=== PATIENT | female | born 1945 | race Hispanic/Latino ===

== ENCOUNTER → 2018-03-02 | Outpatient (CLI) | payer OTHER ==
[~2018-03-02] MED LIST: FURO20TA4 PO
== END | disposition home or self-care (01) ==
LOC: OIH 12:48
PROVIDERS: ATTEND Internal Medicine Cardiovascular Disease
DX: G31.9 Degenerative disease of nervous system, unspecified (principal)
CPT/HCPCS: 70450

== ENCOUNTER → 2018-03-11 | Outpatient (CLI) | payer OTHER | END | disposition home or self-care (01) | LOC: SHCH 15:33 | PROVIDERS: ATTEND Internal Medicine Cardiovascular Disease | DX: I20.9 Angina pectoris, unspecified (principal) | CPT/HCPCS: 93306 ==

== ENCOUNTER → 2018-03-17 | Outpatient (CLI) | payer OTHER ==
[~2018-03-17] VITALS: Ht 152.4 cm; Wt 99.3 kg
[~2018-03-17] MED LIST changes: +REGADENOSON 0.4 MG/5 ML PF SYG IVP SCH
== END | disposition home or self-care (01) ==
LOC: SHCH 09:23
PROVIDERS: ATTEND Internal Medicine Cardiovascular Disease
DX: I20.9 Angina pectoris, unspecified (principal)
CPT/HCPCS: 78452; 93017; 96374; A9500 ×2; J2785 ×2

== ENCOUNTER → 2018-03-30 | Outpatient (CLI) | payer OTHER ==
[~2018-03-30] MED LIST changes: -REGADENOSON 0.4 MG/5 ML PF SYG IVP SCH
== END | disposition home or self-care (01) ==
LOC: SHCH 09:56
PROVIDERS: ATTEND Internal Medicine Cardiovascular Disease
DX: I65.23 Occlusion and stenosis of bilateral carotid arteries (principal)
CPT/HCPCS: 93880

== ENCOUNTER → 2020-01-31 | Outpatient (CLI) | payer OTHER ==
[~2020-01-31] MED LIST changes: +CEFU500T67 PO; +LETR2.5T7 PO; +METO100T14 PO; +OSEL75 PO
== END | disposition home or self-care (01) ==
LOC: SHCH 14:15
PROVIDERS: ATTEND Internal Medicine Cardiovascular Disease
DX: I73.9 Peripheral vascular disease, unspecified (principal)
CPT/HCPCS: 93925

== ENCOUNTER → 2020-10-23 | Outpatient (CLI) | payer OTHER | END | disposition home or self-care (01) | LOC: OIH 12:49 | PROVIDERS: ATTEND Internal Medicine Cardiovascular Disease | DX: Z13.6 Encounter for screening for cardiovascular disorders (principal) | CPT/HCPCS: 75571 ==

== ENCOUNTER → 2020-10-23 | Outpatient (CLI) | payer OTHER | END | disposition home or self-care (01) | LOC: SHCH 12:50 | PROVIDERS: ATTEND Internal Medicine Cardiovascular Disease | DX: I10 Essential (primary) hypertension (principal) | CPT/HCPCS: 93975 ==

== ENCOUNTER → 2021-05-23 | Outpatient (CLI) | payer MEDICARE ==
[~2021-05-23] MED LIST changes: +AEC81 PO; +BIMA12.5OS OD; +CALC-1009 PO; +FLUO10CA21 PO; +METO-391 PO; +NIFE30TA5 PO; +PANT20TA18 PO; +ZOLE5INF IV; +[UNRECOGNIZED DRUG - OTHER] OU
== END | disposition home or self-care (01) ==
LOC: RAH 09:02
PROVIDERS: ATTEND Internal Medicine Gastroenterology
DX: K76.0 Fatty (change of) liver, not elsewhere classified (principal)
CPT/HCPCS: 76700

== ENCOUNTER 2021-05-27 08:09 | Inpatient (IN) | payer MEDICARE ==
[~2021-05-27] VITALS: Ht 149.9 cm; Wt 96.2 kg
[2021-05-27] VITALS (14 sets, daily range): BP systolic 110–150; BP diastolic 46–65
[~2021-05-27 08:09] MED LIST changes: +0.9%NACL 1000ML 1,000 ML IV ONE; -METO100T14 PO
[2021-05-27] MEDS ORDERED: PROPOFOL 10 MG/ML 20ML VIAL IV ONE ×2 (10:35)
[2021-05-27] MEDS ORDERED: ALBUTEROL 0.083% 2.5 MG/3 ML INH IH ONE (12:06)
[2021-05-27 16:26] LABS: BASOPHILS % (AUTO) 0.3 % (0.0-5.0); EOSINOPHILS % (AUTO) 2.2 % (0.0-8.0); HEMATOCRIT 37.9 % (36-48); LYMPHOCYTES % (AUTO) 6.2 % (21.0-51.0); MEAN CORPUSCULAR HEMOGLOBIN 31.9 pg (27.0-33.0); MEAN CORPUSCULAR HGB CONC 33.5 g/dL (32.0-36.0); MEAN CORPUSCULAR VOLUME 95.2 fL (79-99); MONOCYTES % (AUTO) 4.8 % (3.0-13.0); NEUTROPHILS % (AUTO) 86.2 % (40.0-77.0); PLATELET COUNT (AUTO) 222 K/uL (130-400); RED BLOOD CELL COUNT(AUTO) 3.98 MIL/uL (4.00-5.50); RED CELL DISTRIBUTION WIDTH 13.6 % (11.0-15.5); WHITE BLOOD COUNT (AUTO) 10.6 K/uL (4.8-10.8)
[2021-05-27] MEDS ORDERED: IPRATROPIUM/ALBUTEROL SULFATE 3 ML SOLUTION IH PRN (16:30)
[2021-05-27] MEDS ORDERED: LACTULOSE 20 GM/30 ML UDCUP PO PRN (16:30)
[2021-05-27] MEDS ORDERED: ACETAMINOPHEN 325 MG TAB PO PRN ×2 (16:30)
[2021-05-27 16:40] LABS: INR 1.05 (0.85-1.15); PROTHROMBIN TIME 11.4 SEC (9.6-11.6)
[2021-05-27 16:44] LABS: CREATININE 0.7 mg/dL (0.5-1.5); POTASSIUM 4.5 mmol/L (3.5-5.1)
[2021-05-27 16:48] LABS: ALBUMIN 3.2 g/dL (3.5-5.0); BILIRUBIN,TOTAL 0.6 mg/dL (0.2-1.0); TOTAL PROTEIN, SERUM 6.8 g/dL (6.0-8.3)
[2021-05-27] MEDS ORDERED: ZOLEDRONIC ACID IJ PRN (17:00)
[2021-05-27] MEDS ORDERED: MANNITOL IJ PRN (17:00)
[2021-05-27] MEDS ORDERED: WATER IJ PRN (17:00)
[2021-05-27] MEDS ORDERED: IOHEXOL-350 75 ML VIAL IV ONE (20:43)
[2021-05-27] MEDS: ZOSYN 3.375GM+NS 50ML 50 ML IV SCH (20:49)
[2021-05-27] MEDS: [UNRECOGNIZED DRUG - OTHER] OU SCH (21:00)
[2021-05-28] VITALS: BP 136/53
[2021-05-28] MEDS: ZOSYN 3.375GM+NS 50ML 50 ML IV SCH ×3 (04:46→21:36)
[2021-05-28] MEDS: ONDANSETRON 4MG INJ IV PRN (05:30)
[2021-05-28 06:23] VITALS: BP 140/50
[2021-05-28 08:00] VITALS: BP 130/50
[2021-05-28] MEDS: [UNRECOGNIZED DRUG - OTHER] OU SCH ×2 (09:00→21:00)
[2021-05-28] MEDS: BIMATOPROST OD SCH (09:00)
[2021-05-28] MEDS: NIFEDIPINE ER 30 MG TAB PO SCH (09:06)
[2021-05-28] MEDS: METOPROLOL SUCCINATE 50 MG TAB.SR.24H PO SCH (09:06)
[2021-05-28] MEDS: FLUOXETINE HCL 10 MG CAPSULE PO SCH (09:06)
[2021-05-28] MEDS: PANTOPRAZOLE 40 MG TAB DR PO SCH (09:06)
[2021-05-28] MEDS: ASPIRIN 81 MG EC TAB PO SCH (09:06)
[2021-05-28 09:45] LABS: BASOPHILS % (AUTO) 0.2 % (0.0-5.0); EOSINOPHILS % (AUTO) 0.1 % (0.0-8.0); HEMATOCRIT 33.2 % (36-48); MEAN CORPUSCULAR HEMOGLOBIN 31.8 pg (27.0-33.0); MEAN CORPUSCULAR HGB CONC 33.4 g/dL (32.0-36.0); MEAN CORPUSCULAR VOLUME 95.1 fL (79-99); MONOCYTES % (AUTO) 5.9 % (3.0-13.0); NEUTROPHILS % (AUTO) 82.3 % (40.0-77.0); PLATELET COUNT (AUTO) 192 K/uL (130-400); RED BLOOD CELL COUNT(AUTO) 3.49 MIL/uL (4.00-5.50); RED CELL DISTRIBUTION WIDTH 13.9 % (11.0-15.5); WHITE BLOOD COUNT (AUTO) 19.2 K/uL (4.8-10.8)
[2021-05-28 10:00] LABS: ALBUMIN 2.6 g/dL (3.5-5.0); BILIRUBIN,DIRECT 0.2 mg/dL (0.0-0.3); BILIRUBIN,TOTAL 0.8 mg/dL (0.2-1.0); CREATININE 0.7 mg/dL (0.5-1.5); POTASSIUM 3.6 mmol/L (3.5-5.1); TOTAL PROTEIN, SERUM 6.1 g/dL (6.0-8.3)
[2021-05-28 12:00] VITALS: BP 130/51
[2021-05-28] MEDS ORDERED: KCL 20 MEQ ERTAB PO ONE (12:03)
[2021-05-28 16:00] VITALS: BP 136/46
[2021-05-28] MEDS ORDERED: COMPOUND IV REFRIGERATED 1 EACH IVSOLN MISC PRN (17:00)
[2021-05-28] MEDS ORDERED: VANCOMYCIN PROTOCOL PER PHARMACY IV SCH (17:00)
[2021-05-28] MEDS: VANCOMYCIN 1.25GM/NS 250ML IVPB SCH ×2 (18:05)
[2021-05-28 20:00] VITALS: BP 143/51
[2021-05-29] VITALS: BP 160/52
[2021-05-29 04:00] VITALS: BP 140/48
[2021-05-29 05:24] LABS: BASOPHILS % (AUTO) 0.3 % (0.0-5.0); EOSINOPHILS % (AUTO) 0.6 % (0.0-8.0); HEMATOCRIT 31.9 % (36-48); LYMPHOCYTES % (AUTO) 11.7 % (21.0-51.0); MEAN CORPUSCULAR HEMOGLOBIN 31.3 pg (27.0-33.0); MEAN CORPUSCULAR HGB CONC 32.9 g/dL (32.0-36.0); MEAN CORPUSCULAR VOLUME 95.2 fL (79-99); MONOCYTES % (AUTO) 5.7 % (3.0-13.0); NEUTROPHILS % (AUTO) 81.3 % (40.0-77.0); PLATELET COUNT (AUTO) 178 K/uL (130-400); RED BLOOD CELL COUNT(AUTO) 3.35 MIL/uL (4.00-5.50); RED CELL DISTRIBUTION WIDTH 13.7 % (11.0-15.5); WHITE BLOOD COUNT (AUTO) 15.7 K/uL (4.8-10.8)
[2021-05-29] MEDS: ZOSYN 3.375GM+NS 50ML 50 ML IV SCH ×3 (05:27→21:55)
[2021-05-29 05:46] LABS: ALBUMIN 2.6 g/dL (3.5-5.0); BILIRUBIN,TOTAL 0.6 mg/dL (0.2-1.0); CREATININE 0.7 mg/dL (0.5-1.5); POTASSIUM 3.5 mmol/L (3.5-5.1); TOTAL PROTEIN, SERUM 6.3 g/dL (6.0-8.3)
[2021-05-29 08:00] VITALS: BP 161/55
[2021-05-29] MEDS: [UNRECOGNIZED DRUG - OTHER] OU SCH ×2 (09:00→21:00)
[2021-05-29] MEDS: BIMATOPROST OD SCH (09:00)
[2021-05-29] MEDS: VANCOMYCIN 1.25GM/NS 250ML IVPB SCH ×2 (10:18)
[2021-05-29] MEDS: FLUOXETINE HCL 10 MG CAPSULE PO SCH (10:19)
[2021-05-29] MEDS: NIFEDIPINE ER 30 MG TAB PO SCH (10:19)
[2021-05-29] MEDS: ASPIRIN 81 MG EC TAB PO SCH (10:19)
[2021-05-29] MEDS: PANTOPRAZOLE 40 MG TAB DR PO SCH (10:19)
[2021-05-29] MEDS: ENOXAPARIN SODIUM 40 MG/0.4 ML SYRINGE SQ SCH (10:19)
[2021-05-29] MEDS: METOPROLOL SUCCINATE 50 MG TAB.SR.24H PO SCH (10:19)
[2021-05-29 11:58] VITALS: BP 149/59
[2021-05-29 16:00] VITALS: BP 156/54
[2021-05-29 20:00] VITALS: BP 147/46
[2021-05-30] VITALS: BP 145/57
[2021-05-30] MEDS: ONDANSETRON 4MG INJ IV PRN ×2 (02:12→20:56)
[2021-05-30 04:00] VITALS: BP 157/65
[2021-05-30 05:00] LABS: HEMATOCRIT 33.1 % (36-48); MEAN CORPUSCULAR HEMOGLOBIN 31.4 pg (27.0-33.0); MEAN CORPUSCULAR HGB CONC 32.6 g/dL (32.0-36.0); MEAN CORPUSCULAR VOLUME 96.2 fL (79-99); RED BLOOD CELL COUNT(AUTO) 3.44 MIL/uL (4.00-5.50); RED CELL DISTRIBUTION WIDTH 13.4 % (11.0-15.5); WHITE BLOOD COUNT (AUTO) 10.4 K/uL (4.8-10.8)
[2021-05-30 05:20] LABS: CREATININE 0.6 mg/dL (0.5-1.5); POTASSIUM 3.5 mmol/L (3.5-5.1)
[2021-05-30] MEDS: ZOSYN 3.375GM+NS 50ML 50 ML IV SCH ×3 (05:35→20:56)
[2021-05-30 07:15] VITALS: BP 139/54
[2021-05-30] MEDS: [UNRECOGNIZED DRUG - OTHER] OU SCH ×2 (09:00→21:00)
[2021-05-30] MEDS: BIMATOPROST OD SCH (09:00)
[2021-05-30] MEDS: ASPIRIN 81 MG EC TAB PO SCH (09:55)
[2021-05-30] MEDS: NIFEDIPINE ER 30 MG TAB PO SCH (09:55)
[2021-05-30] MEDS: FLUOXETINE HCL 10 MG CAPSULE PO SCH (09:56)
[2021-05-30] MEDS: METOPROLOL SUCCINATE 50 MG TAB.SR.24H PO SCH (09:56)
[2021-05-30] MEDS: PANTOPRAZOLE 40 MG TAB DR PO SCH (09:56)
[2021-05-30] MEDS: ENOXAPARIN SODIUM 40 MG/0.4 ML SYRINGE SQ SCH (09:57)
[2021-05-30 11:03] VITALS: BP 148/66
[2021-05-30 15:28] VITALS: BP 167/75
[2021-05-30] MEDS ORDERED: GUAIFENESIN-DM 200/20 MG 10 ML PO PRN (16:30)
[2021-05-30 20:00] VITALS: BP 147/52
[2021-05-30] MEDS ORDERED: 0.9%NACL 50ML 50 ML IV ONE (20:53)
[2021-05-31] VITALS: BP 123/50
[2021-05-31 04:00] VITALS: BP 137/52
[2021-05-31] MEDS ORDERED: 0.9%NACL 50ML 50 ML IV ONE ×2 (05:29→21:56)
[2021-05-31] MEDS: ZOSYN 3.375GM+NS 50ML 50 ML IV SCH ×2 (05:32→14:25)
[2021-05-31 05:36] LABS: BASOPHILS % (AUTO) 0.5 % (0.0-5.0); EOSINOPHILS % (AUTO) 2.3 % (0.0-8.0); HEMATOCRIT 33.8 % (36-48); LYMPHOCYTES % (AUTO) 20.9 % (21.0-51.0); MEAN CORPUSCULAR HEMOGLOBIN 31.8 pg (27.0-33.0); MEAN CORPUSCULAR HGB CONC 33.1 g/dL (32.0-36.0); MONOCYTES % (AUTO) 7.7 % (3.0-13.0); NEUTROPHILS % (AUTO) 68.1 % (40.0-77.0); PLATELET COUNT (AUTO) 228 K/uL (130-400); RED BLOOD CELL COUNT(AUTO) 3.52 MIL/uL (4.00-5.50); RED CELL DISTRIBUTION WIDTH 13.4 % (11.0-15.5); WHITE BLOOD COUNT (AUTO) 8.5 K/uL (4.8-10.8)
[2021-05-31 05:44] LABS: CREATININE 0.7 mg/dL (0.5-1.5); MAGNESIUM 1.8 mg/dL (1.80-2.40); POTASSIUM 4.3 mmol/L (3.5-5.1)
[2021-05-31 08:00] VITALS: BP 165/85
[2021-05-31] MEDS: METOPROLOL SUCCINATE 50 MG TAB.SR.24H PO SCH (08:11)
[2021-05-31] MEDS: ASPIRIN 81 MG EC TAB PO SCH (08:11)
[2021-05-31] MEDS: FLUOXETINE HCL 10 MG CAPSULE PO SCH (08:11)
[2021-05-31] MEDS: NIFEDIPINE ER 30 MG TAB PO SCH (08:11)
[2021-05-31] MEDS: PANTOPRAZOLE 40 MG TAB DR PO SCH (08:11)
[2021-05-31] MEDS: ENOXAPARIN SODIUM 40 MG/0.4 ML SYRINGE SQ SCH (08:12)
[2021-05-31] MEDS: [UNRECOGNIZED DRUG - OTHER] OU SCH ×2 (08:14→21:00)
[2021-05-31] MEDS: BIMATOPROST OD SCH (08:14)
[2021-05-31] MEDS ORDERED: VANCOMYCIN PROTOCOL PER PHARMACY IV SCH (10:00)
[2021-05-31] MEDS ORDERED: COMPOUND IV REFRIGERATED 1 EACH IVSOLN MISC PRN (10:00)
[2021-05-31 12:00] VITALS: BP 150/65
[2021-05-31] MEDS: VANCOMYCIN 1.25GM/NS 250ML IVPB SCH ×2 (12:06)
[2021-05-31 16:00] VITALS: BP 146/72
[2021-05-31 20:00] VITALS: BP 144/67
[2021-06-01] VITALS: BP 159/71
[2021-06-01] MEDS: ZOSYN 3.375GM+NS 50ML 50 ML IV SCH ×3 (00:43→13:07)
[2021-06-01 04:00] VITALS: BP 146/67
[2021-06-01] MEDS ORDERED: 0.9%NACL 50ML 50 ML IV ONE (04:39)
[2021-06-01 08:00] VITALS: BP 117/67
[2021-06-01] MEDS: [UNRECOGNIZED DRUG - OTHER] OU SCH (09:00)
[2021-06-01] MEDS: BIMATOPROST OD SCH (09:00)
[2021-06-01] MEDS: ASPIRIN 81 MG EC TAB PO SCH (09:24)
[2021-06-01] MEDS: PANTOPRAZOLE 40 MG TAB DR PO SCH (09:24)
[2021-06-01] MEDS: NIFEDIPINE ER 30 MG TAB PO SCH (09:24)
[2021-06-01] MEDS: FLUOXETINE HCL 10 MG CAPSULE PO SCH (09:25)
[2021-06-01] MEDS: METOPROLOL SUCCINATE 50 MG TAB.SR.24H PO SCH (09:25)
[2021-06-01] MEDS: ENOXAPARIN SODIUM 40 MG/0.4 ML SYRINGE SQ SCH (09:25)
[2021-06-01] MEDS: VANCOMYCIN 1.25GM/NS 250ML IVPB SCH ×2 (10:15)
[2021-06-01 12:00] VITALS: BP 122/52
[2021-06-01] MEDS ORDERED: AMOX-426 PO (13:17)
[2021-06-01] MEDS ORDERED: PANT40TA PO (13:17)
[2021-06-01] MEDS ORDERED: ONDA4TAB4 PO (13:22)
== END 2021-06-01 17:30 | disposition home or self-care (01) | DRG 177 ==
LOC: DAH 08:09 → ENDO 08:09 → 3CH 08:10 → OBSVTOIN 08:10 → ENDO 14:45
PROVIDERS: ADMIT Internal Medicine; ATTEND Internal Medicine
PROC: 0DB68ZX Excision of Stomach, Via Natural or Artificial Opening Endoscopic, Diagnostic (ICD-10-PCS; principal; 2021-05-27)
PROC: 0DB68ZZ Excision of Stomach, Via Natural or Artificial Opening Endoscopic (ICD-10-PCS; 2021-05-27)
PROC: 0DJD8ZZ Inspection of Lower Intestinal Tract, Via Natural or Artificial Opening Endoscopic (ICD-10-PCS; 2021-05-27)
DX: J69.0 Pneumonitis due to inhalation of food and vomit (principal); J96.01 Acute respiratory failure with hypoxia; N39.0 Urinary tract infection, site not specified; Z68.41 Body mass index [BMI] 40.0-44.9, adult; I10 Essential (primary) hypertension; E78.5 Hyperlipidemia, unspecified; I25.10 Atherosclerotic heart disease of native coronary artery without angina pectoris; K29.70 Gastritis, unspecified, without bleeding; K31.7 Polyp of stomach and duodenum; R13.10 Dysphagia, unspecified; K44.9 Diaphragmatic hernia without obstruction or gangrene; R19.4 Change in bowel habit; K21.9 Gastro-esophageal reflux disease without esophagitis; M19.90 Unspecified osteoarthritis, unspecified site; F41.9 Anxiety disorder, unspecified; B96.20 Unspecified Escherichia coli [E. coli] as the cause of diseases classified elsewhere; E66.9 Obesity, unspecified; R53.81 Other malaise; Z20.822 Contact with and (suspected) exposure to COVID-19; M81.0 Age-related osteoporosis without current pathological fracture; Z85.3 Personal history of malignant neoplasm of breast; Z95.0 Presence of cardiac pacemaker; Z87.442 Personal history of urinary calculi; Z90.711 Acquired absence of uterus with remaining cervical stump; Z90.49 Acquired absence of other specified parts of digestive tract; Z88.8 Allergy status to other drugs, medicaments and biological substances; Z83.3 Family history of diabetes mellitus; Z82.0 Family history of epilepsy and other diseases of the nervous system; Z82.3 Family history of stroke; Z82.49 Family history of ischemic heart disease and other diseases of the circulatory system; Z82.5 Family history of asthma and other chronic lower respiratory diseases
CPT/HCPCS: 36415; 43239; 43251; 45378; 70450; 71045; 71275; 80048; 80053; 80076; 80202; 83605; 83735; 84145; 85025; 85027; 85378; 85610; 85730; 86738; 87040; 87071; 87077; 87088; 87186; 87205; 87449; 87635; 87804; 92610; 93005; 94640; 94664; A4606; G0378; J1650; J2405; J2543; J2704; J3370; J7030; J7050; Q9967

== ENCOUNTER → 2021-06-19 | Outpatient (CLI) | payer MEDICARE ==
[~2021-06-19] MED LIST changes: -0.9%NACL 1000ML 1,000 ML IV ONE; +AMOX-426 PO; -CEFU500T67 PO; +ONDA4TAB4 PO; +PANT40TA PO
== END | disposition home or self-care (01) ==
LOC: SHCH 08:30
PROVIDERS: ATTEND Internal Medicine Cardiovascular Disease
DX: I11.9 Hypertensive heart disease without heart failure (principal); R55 Syncope and collapse
CPT/HCPCS: 93306

== ENCOUNTER 2022-06-15 12:01 | Emergency (ER) | payer MEDICARE ==
[~2022-06-15] VITALS: Ht 149.9 cm; Wt 95.3 kg
[2022-06-15] MEDS ORDERED: 0.9%NACL 1000ML 1,000 ML IV SCH (12:30)
[2022-06-15] MEDS ORDERED: ONDANSETRON 4MG INJ IVP ONE (12:30)
[2022-06-15] MEDS ORDERED: KETOROLAC 30MG VIAL (30MG/ML) IVP ONE (12:30)
[2022-06-15 13:04] LABS: BASOPHILS % (AUTO) 0.4 % (0.0-5.0); EOSINOPHILS % (AUTO) 0.9 % (0.0-8.0); LYMPHOCYTES % (AUTO) 16.3 % (21.0-51.0); MEAN CORPUSCULAR HEMOGLOBIN 31.7 pg (27.0-33.0); MEAN CORPUSCULAR HGB CONC 33.7 g/dL (32.0-36.0); MEAN CORPUSCULAR VOLUME 94.1 fL (79-99); MONOCYTES % (AUTO) 6.5 % (3.0-13.0); NEUTROPHILS % (AUTO) 75.6 % (40.0-77.0); PLATELET COUNT (AUTO) 216 K/uL (130-400); RED BLOOD CELL COUNT(AUTO) 4.04 MIL/uL (4.00-5.50); RED CELL DISTRIBUTION WIDTH 13.2 % (11.0-15.5); WHITE BLOOD COUNT (AUTO) 10.4 K/uL (4.8-10.8)
[2022-06-15 13:05] LABS: APPEARANCE,URINE Clear (CLEAR); BILIRUBIN,URINE Negative (NEGATIVE); COLOR,URINE Yellow (YELLOW); GLUCOSE, URINE (UA) Negative (NEGATIVE); KETONES,URINE Negative (NEGATIVE); LEUKOCYTE ESTERASE ,URINE Small (NEGATIVE); NITRATE,URINE Negative (NEGATIVE); OCCULT BLOOD,URINE Negative (NEGATIVE); PH,URINE 6.5 (5.0-8.0); PROTEIN,URINE Negative (NEGATIVE); UROBILINOGEN,URINE 0.2 mg/dL (0.2-1.0)
[2022-06-15 13:13] LABS: CARBON DIOXIDE 27 mmol/L (21-32); CHLORIDE 107 mmol/L (101-111); CREATININE 0.7 mg/dL (0.5-1.5); GLOMERULAR FILTR. RATE CALC 87 mL/min (>60); GLUCOSE,RANDOM 88 mg/dL (70-105); POTASSIUM 4.4 mmol/L (3.5-5.1); SODIUM SERUM 141 mmol/L (136-145); UREA NITROGEN, BLOOD 15 mg/dL (7-18)
[2022-06-15 13:18] LABS: ALANINE AMINOTRANSFERASE 12 U/L (12-78); ALBUMIN 3.4 g/dL (3.5-5.0); ASPARTATE AMINOTRANSFERASE 15 U/L (10-37); TOTAL PROTEIN, SERUM 7.2 g/dL (6.0-8.3)
[2022-06-15 13:35] LABS: BACTERIA,URINE Rare /HPF (None Seen); RBC,URINE 0-1 /HPF (0-1); SQUAMOUS EPITHELIAL CELL,UR Rare /HPF (0-2); WBC,URINE 0-1 /HPF (0-1)
[2022-06-15 13:51] LABS: CRP QUANTITATIVE < 2.00 mg/L (0.00-9.0)
[2022-06-15] MEDS ORDERED: CYCL10TA16 PO (14:04)
[2022-06-15] MEDS ORDERED: LIDOP TD (14:04)
[2022-06-15] MEDS ORDERED: NAPR-1180 PO (14:04)
[2022-06-15 14:15] VITALS: BP 98/60
== END 2022-06-15 14:25 | disposition home or self-care (01) ==
LOC: EDH 12:01
DX: S29.012A Strain of muscle and tendon of back wall of thorax, initial encounter (principal); E86.0 Dehydration; R10.9 Unspecified abdominal pain; E66.01 Morbid (severe) obesity due to excess calories; K21.9 Gastro-esophageal reflux disease without esophagitis; E78.00 Pure hypercholesterolemia, unspecified; M81.0 Age-related osteoporosis without current pathological fracture; Z85.3 Personal history of malignant neoplasm of breast; Z87.442 Personal history of urinary calculi; Z90.710 Acquired absence of both cervix and uterus; Z90.49 Acquired absence of other specified parts of digestive tract; Z68.41 Body mass index [BMI] 40.0-44.9, adult; X58.XXXA Exposure to other specified factors, initial encounter; Y93.89 Activity, other specified; Y92.89 Other specified places as the place of occurrence of the external cause; Y99.8 Other external cause status
CPT/HCPCS: 99284; 74176; 96374; 96361; 96375; 84484; 80053; 85025; 83605; 86140; 81001; 36415; J7030; J2405; J1885

== ENCOUNTER → 2022-11-19 | Outpatient (CLI) | payer MEDICARE ==
[~2022-11-19] MED LIST changes: +CYCL10TA16 PO; +LIDOP TD; +NAPR-1180 PO
== END | disposition home or self-care (01) ==
LOC: RAH 08:47
PROVIDERS: ATTEND Internal Medicine Gastroenterology
DX: K21.9 Gastro-esophageal reflux disease without esophagitis (principal); K44.9 Diaphragmatic hernia without obstruction or gangrene; R13.10 Dysphagia, unspecified; R93.3 Abnormal findings on diagnostic imaging of other parts of digestive tract
CPT/HCPCS: 74240

== ENCOUNTER 2024-01-20 09:21 | Emergency (ER) | payer MEDICARE ==
[~2024-01-20] VITALS: Ht 149.9 cm; Wt 95.3 kg
[2024-01-20 10:00] LABS: BASOPHILS # (AUTO) 0.07 K/uL (0.00-0.20); BASOPHILS % (AUTO) 0.8 % (0.0-5.0); EOSINOPHILS # (AUTO) 0.18 K/uL (0.00-0.70); EOSINOPHILS % (AUTO) 2.2 % (0.0-8.0); HEMATOCRIT 40.5 % (36-48); IMMATURE GRANULOCYTE ABSOLUTE 0.02 K/uL (0-1); LYMPHOCYTES # (AUTO) 2.3 K/uL (1.0-4.8); LYMPHOCYTES % (AUTO) 28.1 % (21.0-51.0); MEAN CORPUSCULAR HEMOGLOBIN 32.2 pg (27.0-33.0); MEAN CORPUSCULAR HGB CONC 33.6 g/dL (32.0-36.0); MONOCYTES # (AUTO) 0.6 K/uL (0.1-1.0); MONOCYTES % (AUTO) 7.7 % (3.0-13.0); NEUTROPHILS # (AUTO) 5.1 K/uL (1.8-7.7); PLATELET COUNT (AUTO) 301 K/uL (130-400); RED BLOOD CELL COUNT(AUTO) 4.22 MIL/uL (4.00-5.50); RED CELL DISTRIBUTION WIDTH 13.5 % (11.0-15.5); WHITE BLOOD COUNT (AUTO) 8.3 K/uL (4.8-10.8)
[2024-01-20] MEDS: ONDANSETRON 4MG INJ IVP ONE (10:00)
[2024-01-20] MEDS: KETOROLAC 30MG VIAL (30MG/ML) IVP ONE (10:00)
[2024-01-20] MEDS: 0.9%NACL 1000ML 1,000 ML IV ONE (10:01)
[2024-01-20 10:03] LABS: APPEARANCE,URINE CLOUDY (CLEAR); BILIRUBIN,URINE NEGATIVE (NEGATIVE); COLOR,URINE LIGHT-YELLOW (YELLOW); GLUCOSE, URINE (UA) NEGATIVE (NEGATIVE); KETONES,URINE NEGATIVE (NEGATIVE); LEUKOCYTE ESTERASE ,URINE 500 Leu/uL (NEGATIVE); NITRATE,URINE NEGATIVE (NEGATIVE); PH,URINE 6.5 (5.0-8.0); PROTEIN,URINE 10 mg/dL (NEGATIVE); UROBILINOGEN,URINE 0.2 mg/dL (0.2-1.0)
[2024-01-20 10:10] LABS: CREATININE 0.7 mg/dL (0.5-1.5); POTASSIUM 4.6 mmol/L (3.5-5.1)
[2024-01-20 10:12] LABS: ADD UA MICROSCOPIC YES
[2024-01-20 10:14] LABS: ALBUMIN 3.5 g/dL (3.5-5.0); BILIRUBIN,TOTAL 0.5 mg/dL (0.2-1.0); TOTAL PROTEIN, SERUM 7.9 g/dL (6.0-8.3)
[2024-01-20 10:15] LABS: BACTERIA,URINE FEW /HPF (None Seen); MUCUS,URINE RARE LPF (None Seen); SQUAMOUS EPITHELIAL CELL,UR RARE /HPF (0-2); WBC CLUMP MOD /HPF (0-1); WBC,URINE TNTC /HPF (0-1); YEAST,URINE BUDDING FEW /HPF (None Seen)
[2024-01-20] MEDS: CEFTRIAXONE 1G VIAL IVPB ONE (10:57)
[2024-01-20] MEDS ORDERED: PHEN-776 PO (12:17)
[2024-01-20] MEDS ORDERED: AMOX1TAB16 PO (12:17)
[2024-01-20 12:29] VITALS: BP 120/62; PULSE 60; RESP 18; O2SAT 100
== END 2024-01-20 12:28 | disposition home or self-care (01) ==
LOC: EDH 09:21
DX: N30.01 Acute cystitis with hematuria (principal); R10.9 Unspecified abdominal pain; E78.00 Pure hypercholesterolemia, unspecified; I10 Essential (primary) hypertension; E66.9 Obesity, unspecified; Z90.49 Acquired absence of other specified parts of digestive tract; Z68.41 Body mass index [BMI] 40.0-44.9, adult; Z79.811 Long term (current) use of aromatase inhibitors; Z79.82 Long term (current) use of aspirin; Z79.899 Other long term (current) drug therapy; Z88.1 Allergy status to other antibiotic agents; Z90.710 Acquired absence of both cervix and uterus
CPT/HCPCS: 99285; 74176; 96374; 96375; 80053; 83690; 85025; 87040 ×2; 87077; 87088; 87186; 81001; 36415; J7030; J0696; J2405; J1885

== ENCOUNTER 2024-05-19 09:56 | Day surgery (SDC) | payer MEDICARE ==
[2024-05-17 11:00] VITALS: BP 140/78; PULSE 60; RESP 17
[2024-05-17 11:11] LABS: BASOPHILS # (AUTO) 0.07 K/uL (0.00-0.20); BASOPHILS % (AUTO) 1.2 % (0.0-5.0); EOSINOPHILS # (AUTO) 0.17 K/uL (0.00-0.70); EOSINOPHILS % (AUTO) 2.8 % (0.0-8.0); HEMATOCRIT 38.6 % (36-48); IMMATURE GRANULOCYTE ABSOLUTE 0.06 K/uL (0-1); LYMPHOCYTES # (AUTO) 1.9 K/uL (1.0-4.8); LYMPHOCYTES % (AUTO) 31.6 % (21.0-51.0); MEAN CORPUSCULAR HEMOGLOBIN 31.3 pg (27.0-33.0); MEAN CORPUSCULAR HGB CONC 32.6 g/dL (32.0-36.0); MONOCYTES # (AUTO) 0.6 K/uL (0.1-1.0); MONOCYTES % (AUTO) 10.1 % (3.0-13.0); NEUTROPHILS # (AUTO) 3.2 K/uL (1.8-7.7); NEUTROPHILS % (AUTO) 53.3 % (40.0-77.0); PLATELET COUNT (AUTO) 263 K/uL (130-400); RED BLOOD CELL COUNT(AUTO) 4.02 MIL/uL (4.00-5.50); RED CELL DISTRIBUTION WIDTH 13.9 % (11.0-15.5)
[2024-05-17 11:15] LABS: CREATININE 0.7 mg/dL (0.5-1.0); POTASSIUM 4.6 mmol/L (3.5-5.1)
[2024-05-19] VITALS (8 sets, daily range): BP systolic 107–146; BP diastolic 47–72; PULSE 51–63; RESP 13–20
[~2024-05-19] VITALS: Ht 149.9 cm; Wt 95.0 kg
[~2024-05-19 09:56] MED LIST changes: -AMOX-426 PO; -BIMA12.5OS OD; +BIMA12.5OS OU; -CALC-1009 PO; +CALC-1038 PO; +CYAN-106 PO; -CYCL10TA16 PO; +CYCL30DR OU; -FLUO10CA21 PO; +FLUO40CA49 PO; -LIDOP TD; +LISI10TA24 PO; -METO-391 PO; +METO-409 PO; -NAPR-1180 PO; -NIFE30TA5 PO; -ONDA4TAB4 PO; -OSEL75 PO; -PANT20TA18 PO; +VITAMIN D PO; -ZOLE5INF IV; -[UNRECOGNIZED DRUG - OTHER] OU
[2024-05-19 10:36] LABS: INR 1.02 (0.85-1.15)
[2024-05-19 10:38] LABS: PARTIAL THROMBOPLASTIN TIME 23.9 SEC (26.3-35.5)
[2024-05-19] MEDS: 0.9%NACL 1000ML 1,000 ML IV ONE (11:31)
[2024-05-19] MEDS ORDERED: LIDOCAINE HCL 1% MDV 50ML VIAL ONE (14:25)
[2024-05-19] MEDS ORDERED: BUPIVACAINE/PF 0.25% 30ML VIAL IJ ONE (14:25)
[2024-05-19] MEDS ORDERED: CEFAZOLIN SODIUM 1 GM VIAL ONE (14:44)
[2024-05-19] MEDS ORDERED: FENTANYL CITRATE PF 50 MCG/1 ML 2ML VIAL ONE (14:48)
[2024-05-19] MEDS ORDERED: MIDAZOLAM HCL 1 MG/ML 2ML VIAL ONE (14:49)
== END 2024-05-19 19:00 | disposition home or self-care (01) ==
LOC: DAH 09:56
PROVIDERS: ATTEND Internal Medicine Interventional Cardiology
DX: I49.5 Sick sinus syndrome (principal); R00.1 Bradycardia, unspecified; Z88.8 Allergy status to other drugs, medicaments and biological substances; F41.9 Anxiety disorder, unspecified; E78.00 Pure hypercholesterolemia, unspecified; I25.10 Atherosclerotic heart disease of native coronary artery without angina pectoris; M19.90 Unspecified osteoarthritis, unspecified site; F32.A Depression, unspecified; K21.9 Gastro-esophageal reflux disease without esophagitis; Z95.0 Presence of cardiac pacemaker; C50.919 Malignant neoplasm of unspecified site of unspecified female breast; Z79.82 Long term (current) use of aspirin; Z79.899 Other long term (current) drug therapy; Z79.01 Long term (current) use of anticoagulants
CPT/HCPCS: 80048; 85025; 36415 ×2; 71045; 93005; 33228; 85610; 85730; C1785; J3010; J0690; J7030; J0665; J2250; J3490; A4215; A4222; A4221; A4663; A4216; A4606; A4223 ×3; 99156; 99157

== ENCOUNTER → 2024-07-04 | Outpatient (CLI) | payer MEDICARE | END | disposition home or self-care (01) | LOC: RAH 10:03 | PROVIDERS: ATTEND Orthopaedic Surgery | DX: S33.140A Subluxation of L4/L5 lumbar vertebra, initial encounter (principal); M47.816 Spondylosis without myelopathy or radiculopathy, lumbar region; M16.0 Bilateral primary osteoarthritis of hip; Z98.890 Other specified postprocedural states; X58.XXXA Exposure to other specified factors, initial encounter; Y93.89 Activity, other specified; Y92.89 Other specified places as the place of occurrence of the external cause; Y99.8 Other external cause status | CPT/HCPCS: 72100; 73521 ==